=== PATIENT | male | born 1975 | race Caucasian/White ===

== ENCOUNTER 2019-10-22 21:31 | Emergency (ER) | payer BC ==
[~2019-10-22] VITALS: Ht 180.3 cm; Wt 154.5 kg
[2019-10-22 21:41] VITALS: BP 149/78; PULSE 81; TEMP 98.6
== END 2019-10-22 22:57 | disposition left against medical advice (07) ==
LOC: COL.ER 21:31
DX: S69.92XA Unspecified injury of left wrist, hand and finger(s), initial encounter (principal); W23.0XXA Caught, crushed, jammed, or pinched between moving objects, initial encounter